=== PATIENT | male | born 1980 | race Caucasian/White ===

== ENCOUNTER 2019-03-20 11:57 | Emergency (ER) | payer MEDICAID ==
[~2019-03-20] VITALS: Ht 180.3 cm; Wt 88.5 kg
[2019-03-20 12:06] VITALS: BP 127/94; Ht 180.3 cm; Wt 88.5 kg
== END 2019-03-20 12:33 | disposition home or self-care (01) ==
LOC: ED 11:57
DX: G89.18 Other acute postprocedural pain (principal); Z98.890 Other specified postprocedural states

== ENCOUNTER 2020-08-25 12:03 | Emergency (ER) | payer MEDICAID ==
[~2020-08-25] VITALS: Ht 182.9 cm; Wt 91.6 kg
[2020-08-25 12:18] VITALS: BP 130/93; Ht 182.9 cm; Wt 91.6 kg
== END 2020-08-25 16:40 | disposition home or self-care (01) ==
LOC: ED 12:03
DX: R10.13 Epigastric pain (principal); R10.2 Pelvic and perineal pain; R22.2 Localized swelling, mass and lump, trunk; R03.0 Elevated blood-pressure reading, without diagnosis of hypertension; Z98.890 Other specified postprocedural states